=== PATIENT | male | born 1990 | race Asian ===

== ENCOUNTER 2025-02-18 09:21 | Day surgery (SDC) | payer BC ==
[2025-02-14 15:34] VITALS: BMI 28.5
[2025-02-18] MEDS ORDERED: PROPOFOL 20 ML ONE (09:53)
[2025-02-18] MEDS ORDERED: Ondansetron PF 4 MG/2 ML Vial ONE (10:11)
[2025-02-18] MEDS ORDERED: Bupivacaine/Epinephrine 0.25% 30 ML VIAL ONE (10:12)
[2025-02-18] MEDS ORDERED: Ketorolac Tromethamine 30 MG (1 mL) VIAL ONE (10:14)
== END 2025-02-18 12:15 | disposition home or self-care (01) ==
LOC: CSHSDC 09:21
PROVIDERS: ATTEND Surgery
PROC: 0H88XZZ Division of Buttock Skin, External Approach (ICD-10-PCS; principal; 2025-02-18)
DX: K60.319 Anal fistula, simple, unspecified (principal); Z85.850 Personal history of malignant neoplasm of thyroid
CPT/HCPCS: J1100; J1885; J2250; J2405; J2704